=== PATIENT | male | born 1965 | race Hispanic/Latino ===

== ENCOUNTER 2018-10-04 19:44 | Inpatient (IN) | payer OTHER, SELFPAY ==
[2018-10-04 20:20] LABS: #Basophils 0.1 thou/uL (0.0-0.2); #Eosinphils 0.2 thou/uL (0.0-0.7); #Lymphocytes 5.2 thou/uL (1.20-3.40); #Monocytes 0.7 thou/uL (0.11-0.59); #Neutrophils 4.3 thou/uL (1.40-6.50); %Basophils 1.1 % (0.0-1.0); %Eosinophils 2.2 % (0.0-10.0); %Lymphocytes 49.3 % (21.0-51.0); %Monocytes 6.6 % (0.0-10.0); %Neutrophils 40.8 % (42.0-75.0); Hemoglobin 16.4 g/dL (14.0-18.0); Mean Corpuscular HGB CONC 33.7 g/dL (32.0-36.0); Mean Corpuscular Hemoglobin 31.3 pg (27.0-31.0); Mean Corpuscular Volume 92.8 fL (78.0-98.0); Mean Platelet Volume 9.6 fL (7.4-10.4); Platelet Count 231 thou/uL (130-400); RBC Distribution Width 12.2 % (11.5-14.5); Red Blood Cell (RBC) Count 5.24 mill/uL (4.70-6.10); White Blood Cell (WBC) Count 10.5 thou/uL (4.8-10.8)
[2018-10-04] MEDS ORDERED: Promethazine HCl 25 MG/ML VIAL ONE (20:26)
[2018-10-04 20:27] LABS: ALT (SGPT) 66 U/L (8-55); AST (SGOT) 25 U/L (5-34); Albumin 4.8 g/dL (3.5-5.0); Alkaline Phosphatase 93 U/L (40-150); Anion Gap 19 mmol/L (10-20); BUN (Urea Nitrogen) 14 mg/dL (8.4-25.7); Bilirubin, Total 0.4 mg/dL (0.2-1.2); Calc. Creatinine Clearance 0 mL/min (70-130); Calcium 10.6 mg/dL (7.8-10.44); Carbon Dioxide 22 mmol/L (22-29); Chloride 103 mmol/L (98-107); Estimated GFR-MDRD 61; Globulin 4.4 g/dL (2.4-3.5); Glucose 432 mg/dL (70-105); Potassium 3.9 mmol/L (3.5-5.1); Protein, Total 9.2 g/dL (6.0-8.3); Sodium 140 mmol/L (136-145)
--- NOTE | 2018-10-04 20:43 | RAD ---
PORTABLE CHEST: Indications: Cough. Comparison: 07-12-14 FINDINGS: Slightly elevated left hemidiaphragm with gaseous distention of the stomach seen under the left hemid iaphragm. The lungs appear clear with no evidence of infiltrate or effusion. Vascular markings within normal range. IMPRESSION: No acute findings. POS: [facility]
--- NOTE | 2018-10-04 21:33 | RAD ---
SOFT TISSUES NECK TWO VIEWS: History: Difficulty swallowing. FINDINGS: On the lateral view the hypopharynx shows prominence with air density. No soft tissue mass. The epigl ottis appears unremarkable. No prevertebral soft tissue fullness. IMPRESSION: No acute finding. Degenerative changes in the cervical spine noted. POS: [facility]
--- NOTE | 2018-10-04 23:09 | CT ---
CT NECK WITHOUT CONTRAST: Technique: Multiple axial tomograms were obtained through the neck without IV enhancement. Indications: Coughing and gapping. Dyspnea. FINDINGS: Parotid glands and submandibular glands appear unremarkable. The exam is limited due to lack of IV contrast. The nasopharynx, oropharynx and hypopharynx appear unremarkable. No evidence of soft tissue mass. No evidence of adenopathy. The parapharyngeal space and retropharyngeal space unremarkable. There are bi lateral retropharyngeal carotid arteries which are tortuous. Degenerative changes in the cervical spi ne. IMPRESSION: No evidence of soft tissue mass or adenopathy identified. POS: [facility]
[2018-10-05 01:02] LABS: Lactic Acid 2.5 mmol/L (0.5-2.2)
[2018-10-05] MEDS ORDERED: Dextrose 5% in Water 1,000 ML IV PRN (01:42)
[2018-10-05] MEDS ORDERED: HumaLOG 300 UNITS/3 ML VIAL SC PRN (01:42)
[2018-10-05] MEDS ORDERED: Dextrose 50% Abboject 50 ML SYRINGE SLOW IVP PRN (01:42)
[2018-10-05] MEDS ORDERED: Acetaminophen 650 MG Suppository PR PRN (01:44)
[2018-10-05] MEDS ORDERED: Bisacodyl 10 MG SUPP PR PRN (01:44)
[2018-10-05] MEDS ORDERED: hydrALAZINE 20 MG/ML VIAL SLOW IVP PRN (01:44)
[2018-10-05] MEDS ORDERED: Ondansetron PF 4 MG/2 ML Vial IVP PRN (01:44)
[2018-10-05] MEDS ORDERED: Acetaminophen 325 MG TAB PO PRN (01:44)
[2018-10-05] MEDS ORDERED: Sodium Chloride 0.9% 1,000 ML IV SCH (01:45)
[2018-10-05 02:18] VITALS: BMI 28.7
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
[2018-10-05 06:04] LABS: #Monocytes 0.6 thou/uL (0.11-0.59); #Neutrophils 8.4 thou/uL (1.40-6.50); %Basophils 0.4 % (0.0-1.0); %Eosinophils 0.2 % (0.0-10.0); %Lymphocytes 17.8 % (21.0-51.0); %Monocytes 5.5 % (0.0-10.0); %Neutrophils 76.2 % (42.0-75.0); Hemoglobin 13.9 g/dL (14.0-18.0); Mean Corpuscular HGB CONC 32.5 g/dL (32.0-36.0); Mean Corpuscular Volume 92.2 fL (78.0-98.0); Mean Platelet Volume 9.2 fL (7.4-10.4); Platelet Count 187 thou/uL (130-400); Red Blood Cell (RBC) Count 4.64 mill/uL (4.70-6.10)
[2018-10-05 06:23] LABS: Anion Gap 16 mmol/L (10-20); BUN (Urea Nitrogen) 12 mg/dL (8.4-25.7); Calc. Creatinine Clearance 115 mL/min (70-130); Calcium 9.6 mg/dL (7.8-10.44); Carbon Dioxide 23 mmol/L (22-29); Chloride 107 mmol/L (98-107); Estimated GFR-MDRD Greater than 90; Glucose 310 mg/dL (70-105); Potassium 3.9 mmol/L (3.5-5.1); Sodium 142 mmol/L (136-145)
[2018-10-05] MEDS: Heparin 5,000 UNITS/ML VIAL SC SCH ×2 (08:23→15:20)
[2018-10-05 08:58] LABS: Bilirubin Negative (Negative); Blood, Urine Negative (Negative); Clarity CLEAR (Clear); Glucose, Urine (Dipstick) >=1000 mg/dL (Negative); Leukocyte Negative (Negative); Nitrite Negative (Negative); Protein, Urine (Dipstick) Negative (Neg-Trace); Specific Gravity, Urine 1.039 (1.002-1.036); Urobilinogen 0.2 mg/dL (0.2-1.0)
[2018-10-05 09:01] LABS: Bacteria/HPF None Seen HPF (None Seen); Hyaline Casts/LPF 0-3 HYALINE CAST LPF (0-3 Hyaline); RBC/HPF 0-3 HPF (0-3); Squamous Epithelial None Seen HPF (0-3); WBC/HPF 0-3 HPF (0-3)
--- NOTE | 2018-10-05 12:51 | MRI ---
MRI BRAIN: HISTORY: A 53-year-old with a history of a stroke. Altered mental status. COMPARISON: CT brain from 08/01/2014. TECHNIQUE: Multiplanar, multisequence, noncontrast-enhanced MR images of the brain obtained. FINDINGS: The previously noted bilateral chronic subdural hematomas have resolved. Some cortical atrophy is pr esent. There is abnormal increased T2 signal seen in the right and left brachium pontis, symmetrically. The se may represent areas of gliosis. There are also some areas of decreased signal on the gradient ech o sequences in these same areas, possibly representing small areas of hemorrhage, which have undergon e chronic changes. There is also pontine and medullary atrophy present. IMPRESSION: 1. Chronic brachium pontis changes with atrophy, as described above. 2. No evidence of acute strokes or abnormalities seen. POS: [facility]
--- NOTE | 2018-10-05 13:22 | CT ---
CT CHEST NONCONTRAST: HISTORY: Pneumonia. FINDINGS: At the left posterior lung base, a small areas of parenchymal opacity is present with air bronchogram s. Peripheral linear stranding lies distal to this. Similar linear scarring is present at the right posterior lung base. No lobar consolidation, pneumothorax, or pleural fluid is apparent. Lack of contrast limits evaluati on of the soft tissues. No bulky mediastinal adenopathy. Old left rib fractures. Within the partia lly visualized upper abdomen, the adrenal glands have a normal appearance. The liver is diffusely hy podense. IMPRESSION: 1. Very mild left infrahilar infiltrate without lobar consolidation. Bibasilar linear scarring. Ac tive inflammatory process is not favored. 2. Hepatosteatosis. POS: [facility]
[2018-10-05] MEDS ORDERED: Albuterol Sulfate 2.5 mg/3 ml Neb NEB PRN (13:41)
[2018-10-05] MEDS ORDERED: HYDROcodone/Acetaminophen 10/325 mg Tablet PO PRN (13:41)
[2018-10-05] MEDS ORDERED: traZODone HCl 50 MG TAB PO PRN (13:41)
[2018-10-05] MEDS ORDERED: Milk Of Magnesia 30 ML UDCUP PO PRN (13:41)
--- NOTE | 2018-10-05 13:57 | PDOC.PN ---
- Subjective Encounter Start Date: 10/05/18 Encounter Start Time: 13:54 Mr. Phillips was seen today in follow-up of " chocking episode ". He seems to be at his baseline. He is rolling himself around in a wheelchair. He appears comfortable. He is trying to speck, but his speech is difficult to understand. He does not appear to be in any distress. - Objective Resuscitation Status - Order Detail: 10/05/18 01:42 Resuscitation Status Routine Resuscitation Status: FULL: Full Resuscitation MAR Reviewed: Yes Vital Signs & Weight: Vital Signs (12 hours) Temp Pulse Resp BP Pulse Ox 10/05/18 11:19 98.7 F 90 20 162/109 H 94 L 10/05/18 08:00 97 10/05/18 07:17 98.4 F 92 20 135/84 97 10/05/18 04:00 97.9 F 99 20 118/79 100 Weight Weight 162 lb 4.163 oz I&O: 10/04/18 10/05/18 10/06/18 06:59 06:59 06:59 Intake Total 650 0 Balance 650 0 Result Diagrams: 10/05/18 05:42 10/05/18 05:42 Additional Labs: Accuchecks 10/05/18 10/05/18 06:40 02:33 POC Glucose 283 H 335 H Phys Exam - Physical Examination HEENT: PERRLA Respiratory: no wheezing, no rales, no rhonchi, clear to auscultation bilateral Cardiovascular: RRR, no significant murmur, no rub Gastrointestinal: soft, non-tender, positive bowel sounds Musculoskeletal: no edema Dx/Plan (1) Aspiration pneumonia Code(s): J69.0 - PNEUMONITIS DUE TO INHALATION OF FOOD AND VOMIT Status: Acute (2) Hypertension Code(s): I10 - ESSENTIAL (PRIMARY) HYPERTENSION Status: Chronic (3) Paraplegia Code(s): G82.20 - PARAPLEGIA, UNSPECIFIED Status: Chronic (4) Traumatic brain injury Code(s): S06.9X9A - UNSP INTRACRANIAL INJURY W LOC OF UNSP DURATION, INIT Status: Chronic - Plan * Aspiration pneumonia- this is mild- it was seen only on CT scan, and he is afebrile, and essentially asymptomatic now * He has been evaluated by Speech Therapy, and their recommendations are noted * HTN- blood pressure is stable * DM- blood glucose is a bit elevated- but stable overall * He can be discharged back to the Nursing facility on Augmentin.
[2018-10-05] MEDS ORDERED: Methyl Salicylate/Menthol 85 GM TUBE TOP PRN (14:18)
[2018-10-05] MEDS ORDERED: Preparation H Ointment 28 GM TUBE TOP PRN (14:21)
[2018-10-05] MEDS ORDERED: Gabapentin 300 MG CAP PO SCH (15:00)
[2018-10-05 15:50] VITALS: BP 135/96; TEMP 97.5
[2018-10-05] MEDS ORDERED: metFORMIN 500 MG TAB PO SCH (17:00)
[2018-10-05] MEDS ORDERED: Docusate 100 MG CAP PO SCH (21:00)
[2018-10-05] MEDS ORDERED: Atorvastatin Calcium 10 MG TAB PO SCH (21:00)
[2018-10-05] MEDS ORDERED: Amoxicillin/Potassium Clav 875 MG TAB PO SCH (21:00)
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
[2018-10-06] MEDS ORDERED: Levothyroxine Sodium 100 MCG TAB PO SCH (06:00)
[2018-10-06] MEDS ORDERED: Aspirin 325 mg Enteric Coated Tablet PO SCH (09:00)
[2018-10-06] MEDS ORDERED: Fluticasone Propionate Nasal Spray 16 gm Bottle NASAL SCH (09:00)
[2018-10-06] MEDS ORDERED: Finasteride 5 MG TAB PO SCH (09:00)
[2018-10-06] MEDS ORDERED: Calcium Citrate 950 MG TAB PO SCH (09:00)
[2018-10-06] MEDS ORDERED: Tamsulosin HCl 0.4 MG CAP PO SCH (09:00)
[2018-10-06] MEDS ORDERED: FLUoxetine HCl 20 MG CAP PO SCH (09:00)
[2018-10-06] MEDS ORDERED: Senokot 8.6 MG TAB PO SCH (09:00)
== END 2018-10-05 17:39 | DRG 178 ==
LOC: ERS 19:44 → ERHOLD 23:07 → SURG B 10-05 00:19
PROVIDERS: ADMIT Family Medicine; ATTEND Family Medicine
DX: J69.0 Pneumonitis due to inhalation of food and vomit (principal); E87.2 Acidosis; G82.22 Paraplegia, incomplete; I10 Essential (primary) hypertension; E03.9 Hypothyroidism, unspecified; F32.9 Major depressive disorder, single episode, unspecified; K21.9 Gastro-esophageal reflux disease without esophagitis; E11.65 Type 2 diabetes mellitus with hyperglycemia; S06.9X0S Unspecified intracranial injury without loss of consciousness, sequela; Z79.84 Long term (current) use of oral hypoglycemic drugs; Z79.899 Other long term (current) drug therapy
CPT/HCPCS: 36415; 36416; 70360; 70490; 70551; 71045; 71250; 80048; 80053; 81001; 83605; 85025; 87040; 87804; 96365; 96367; 96375; J1644; J1956; J2550; J3370

== ENCOUNTER 2019-01-04 18:15 | Emergency (ER) | payer SELFPAY ==
[2019-01-04 19:33] LABS: #Basophils 0.1 thou/uL (0.0-0.2); #Eosinphils 0.1 thou/uL (0.0-0.7); #Lymphocytes 2.6 thou/uL (1.20-3.40); #Monocytes 0.5 thou/uL (0.11-0.59); %Basophils 1.8 % (0.0-1.0); %Eosinophils 2.1 % (0.0-10.0); %Lymphocytes 41.2 % (21.0-51.0); %Monocytes 7.2 % (0.0-10.0); %Neutrophils 47.7 % (42.0-75.0); Hemoglobin 14.8 g/dL (14.0-18.0); Mean Corpuscular Hemoglobin 30.8 pg (27.0-31.0); Mean Corpuscular Volume 90.5 fL (78.0-98.0); Mean Platelet Volume 8.4 fL (7.4-10.4); Platelet Count 190 thou/uL (130-400); RBC Distribution Width 11.9 % (11.5-14.5); Red Blood Cell (RBC) Count 4.79 mill/uL (4.70-6.10); White Blood Cell (WBC) Count 6.4 thou/uL (4.8-10.8)
--- NOTE | 2019-01-04 19:49 | CT ---
CT HEAD WITHOUT CONTRAST: Date: 01/04/19 INDICATION: Assess mental status. COMPARISON: 07/11/14. FINDINGS: Mild cortical volume loss. Ventricles have normal size and position. There is no intracranial mass or hemorrhage. No evidence of acute infarct. IMPRESSION: No acute findings. POS: [facility]
[2019-01-04 19:53] LABS: ALT (SGPT) 53 U/L (8-55); AST (SGOT) 24 U/L (5-34); Albumin 4.3 g/dL (3.5-5.0); Alkaline Phosphatase 83 U/L (40-150); Anion Gap 16 mmol/L (10-20); BUN (Urea Nitrogen) 14 mg/dL (8.4-25.7); Bilirubin, Total 0.5 mg/dL (0.2-1.2); Calc. Creatinine Clearance 0 mL/min (70-130); Calcium 9.7 mg/dL (7.8-10.44); Carbon Dioxide 21 mmol/L (22-29); Chloride 102 mmol/L (98-107); Estimated GFR-MDRD Greater than 90; Globulin 3.4 g/dL (2.4-3.5); Glucose 279 mg/dL (70-105); Potassium 3.7 mmol/L (3.5-5.1); Protein, Total 7.7 g/dL (6.0-8.3); Sodium 135 mmol/L (136-145)
== END 2019-01-04 21:19 ==
LOC: ERS 18:15
DX: E11.65 Type 2 diabetes mellitus with hyperglycemia (principal); Z79.84 Long term (current) use of oral hypoglycemic drugs
CPT/HCPCS: 36415; 36416; 70450; 80053; 85025

== ENCOUNTER 2023-05-14 11:00 | Inpatient (IN) | payer SELFPAY ==
[2023-05-14 11:40] LABS: #Monocytes 0.3 thou/uL (0.11-0.59); #Neutrophils 4.8 thou/uL (1.40-6.50); %Basophils 0.4 % (0.0-1.0); %Eosinophils 0.1 % (0.0-10.0); %Lymphocytes 20.3 % (21.0-51.0); %Monocytes 4.2 % (0.0-10.0); %Neutrophils 70.8 % (42.0-75.0); Hematocrit 35.2 % (42.0-52.0); Hemoglobin 11.2 g/dL (14.0-18.0); Mean Corpuscular HGB CONC 31.8 g/dL (32.0-36.0); Mean Corpuscular Hemoglobin 31.1 pg (27.0-31.0); Mean Corpuscular Volume 97.8 fl (78.0-98.0); Mean Platelet Volume 10.7 fL (7.4-10.4); Platelet Count 129 10x3/uL (130-400); RBC Distribution Width 14.8 % (11.5-14.5); White Blood Cell (WBC) Count 6.7 10x3/uL (4.8-10.8)
[2023-05-14 12:01] LABS: ALT (SGPT) 25 U/L (8-55); AST (SGOT) 11 U/L (5-34); Albumin 3.5 g/dL (3.5-5.0); Alkaline Phosphatase 50 U/L (40-110); Anion Gap 21 mmol/L (10-20); BUN (Urea Nitrogen) 49 mg/dL (8.4-25.7); Bilirubin, Total Less than 0.2 mg/dL (0.2-1.2); CK (CPK) 38 U/L (30-200); Calc. Creatinine Clearance 0 mL/min (70-130); Calcium 9.3 mg/dL (7.8-10.44); Carbon Dioxide 21 mmol/L (22-29); Chloride 106 mmol/L (98-107); Estimated GFR 86; Globulin 2.4 g/dL (2.4-3.5); Glucose 143 mg/dL (70-105); Potassium 5.7 mmol/L (3.5-5.1); Protein, Total 5.9 g/dL (6.0-8.3); Sodium 142 mmol/L (136-145)
[2023-05-14 12:12] LABS: Troponin I Less than 0.010 ng/mL (< 0.028)
[2023-05-14 12:13] LABS: CellaVision Operator ID LAB.KB; Ovalocytes SLIGHT = 2-5 cells HPF (0-1); Platelet Adequacy Comment Platelets Decreased; Polychromasia SLIGHT = 2-3 cells HPF (0-2)
[2023-05-14] MEDS ORDERED: Aspirin 300 MG Suppository ONE (12:15)
[2023-05-14] MEDS ORDERED: HYDROcodone/Acetaminophen 5/325 mg Tablet PO PRN ×2 (13:20)
[2023-05-14] MEDS ORDERED: Acetaminophen 325 MG TAB PO PRN (13:20)
[2023-05-14] MEDS ORDERED: HYDROcodone/Acetaminophen 7.5/325 mg Tablet PO PRN ×2 (13:20)
[2023-05-14] MEDS ORDERED: Senokot S 8.6-50 MG TAB PO PRN (13:20)
[2023-05-14] MEDS ORDERED: HYDROcodone/Acetaminophen 10/325 mg Tablet PO PRN (13:24)
[2023-05-14] MEDS ORDERED: traZODone HCl 50 MG TAB PO PRN (13:24)
[2023-05-14] MEDS ORDERED: Iopamidol-370 76% 500 ML MDV (1 ML CHARGE) ONE (13:26)
[2023-05-14] MEDS ORDERED: Dextrose 5% in Water 1,000 ML IV PRN (13:40)
[2023-05-14] MEDS ORDERED: Dextrose 50% Abboject 50 ML SYRINGE SLOW IVP PRN (13:40)
[2023-05-14] MEDS ORDERED: Glucagon 1 MG/ML KIT IM PRN (13:40)
[2023-05-14 13:54] LABS: Prothrombin Time 12.9 sec (12.0-14.7)
[2023-05-14 13:55] LABS: INR-International Normal Ratio 0.9
[2023-05-14] MEDS ORDERED: Lorazepam 2 MG/ML VIAL SLOW IVP PRN (14:17)
[2023-05-14] MEDS ORDERED: Atorvastatin Calcium 10 MG TAB PO SCH (21:00)
[2023-05-15 01:48] VITALS: BMI 23.3
[2023-05-15] MEDS: Gabapentin 300 MG CAP PO SCH ×4 (03:57→20:56)
[2023-05-15] MEDS: Docusate 100 MG CAP PO SCH ×3 (03:58→20:56)
[2023-05-15 04:18] LABS: #Monocytes 0.4 thou/uL (0.11-0.59); %Basophils 0.1 % (0.0-1.0); %Eosinophils 0.4 % (0.0-10.0); %Lymphocytes 33.2 % (21.0-51.0); %Monocytes 6.2 % (0.0-10.0); %Neutrophils 56.6 % (42.0-75.0); Hematocrit 34.9 % (42.0-52.0); Hemoglobin 11.4 g/dL (14.0-18.0); Mean Corpuscular HGB CONC 32.7 g/dL (32.0-36.0); Mean Corpuscular Hemoglobin 31.3 pg (27.0-31.0); Mean Corpuscular Volume 95.9 fl (78.0-98.0); Mean Platelet Volume 9.4 fL (7.4-10.4); Platelet Count 168 10x3/uL (130-400); RBC Distribution Width 14.6 % (11.5-14.5); Red Blood Cell (RBC) Count 3.64 mill/uL (4.70-6.10); White Blood Cell (WBC) Count 7.1 10x3/uL (4.8-10.8)
[2023-05-15 04:42] LABS: Anion Gap 14 mmol/L (10-20); BUN (Urea Nitrogen) 35 mg/dL (8.4-25.7); Calc. Creatinine Clearance 85 mL/min (70-130); Calcium 9.7 mg/dL (7.8-10.44); Carbon Dioxide 29 mmol/L (22-29); Cardiac Risk 3.6 (Less than 4.5); Chloride 104 mmol/L (98-107); Cholesterol 140 mg/dl (< 200 Desired); Estimated GFR 107; Glucose 95 mg/dL (70-105); HDL Cholesterol 39 mg/dL (>60 Neg Risk); LDL Cholesterol, Calculated 56 mg/dL; Potassium 4.5 mmol/L (3.5-5.1); Sodium 142 mmol/L (136-145); Triglycerides 224 mg/dL (Less than 150)
[2023-05-15] MEDS: Aspirin 325 mg Enteric Coated Tablet PO SCH (10:36)
[2023-05-15] MEDS: Levothyroxine Sodium 100 MCG TAB PO SCH (10:37)
[2023-05-15] MEDS: Loratadine 10 MG TAB PO SCH (10:37)
[2023-05-15] MEDS: Tamsulosin HCl 0.4 MG CAP PO SCH (10:37)
[2023-05-15] MEDS: FLUoxetine HCl 20 MG CAP PO SCH (10:37)
[2023-05-15] MEDS ORDERED: Lorazepam 2 MG/ML VIAL SLOW IVP PRN (11:34)
[2023-05-15] MEDS ORDERED: FLU VACC QS2023-24(6MOS UP)/PF 60 MCG/0.5 ML SYRINGE IM ONE (12:00)
[2023-05-15] MEDS: Senokot 8.6 MG TAB PO SCH (16:33)
[2023-05-15] MEDS: HumaLOG 300 UNITS/3 ML VIAL SC PRN ×2 (18:45→22:11)
[2023-05-15] MEDS: Atorvastatin Calcium 40 MG TAB PO SCH (20:56)
[2023-05-16] MEDS: Levothyroxine Sodium 100 MCG TAB PO SCH (05:50)
[2023-05-16] MEDS ORDERED: Non-Formulary Item 1 EACH (Omeprazole Magnesium [Prilosec Otc] 20 MG Tab) PO SCH (09:00)
[2023-05-16] MEDS ORDERED: Levothyroxine Sodium 50 MCG TAB PO SCH (09:00)
[2023-05-16] MEDS: Docusate 100 MG CAP PO SCH ×2 (09:01→20:27)
[2023-05-16] MEDS: Tamsulosin HCl 0.4 MG CAP PO SCH (09:01)
[2023-05-16] MEDS: Aspirin 325 mg Enteric Coated Tablet PO SCH (09:01)
[2023-05-16] MEDS: Loratadine 10 MG TAB PO SCH (09:02)
[2023-05-16] MEDS: Gabapentin 300 MG CAP PO SCH ×3 (09:02→20:27)
[2023-05-16] MEDS: Senokot 8.6 MG TAB PO SCH (09:02)
[2023-05-16] MEDS: FLUoxetine HCl 20 MG CAP PO SCH (09:03)
[2023-05-16] MEDS: Dexamethasone 4 MG TAB PO SCH ×2 (09:07→20:26)
[2023-05-16] MEDS: Divalproex Sodium 125 mg Sprinkle Capsule PO SCH ×2 (10:39→20:27)
[2023-05-16] MEDS: HumaLOG 300 UNITS/3 ML VIAL SC PRN ×2 (13:26→18:16)
[2023-05-16] MEDS: PARoxetine 20 MG TAB PO SCH (20:26)
[2023-05-16] MEDS: Atorvastatin Calcium 40 MG TAB PO SCH (20:27)
[2023-05-17] MEDS: Levothyroxine Sodium 100 MCG TAB PO SCH (06:11)
[2023-05-17] MEDS: HumaLOG 300 UNITS/3 ML VIAL SC PRN ×2 (06:11→17:16)
[2023-05-17] MEDS: FLUoxetine HCl 20 MG CAP PO SCH (09:26)
[2023-05-17] MEDS: Divalproex Sodium 125 mg Sprinkle Capsule PO SCH ×2 (09:26→22:15)
[2023-05-17] MEDS: Senokot 8.6 MG TAB PO SCH (09:28)
[2023-05-17] MEDS: Dexamethasone 4 MG TAB PO SCH ×2 (09:28→22:15)
[2023-05-17] MEDS: Aspirin 325 mg Enteric Coated Tablet PO SCH (09:29)
[2023-05-17] MEDS: Docusate 100 MG CAP PO SCH ×2 (09:29→22:09)
[2023-05-17] MEDS: Loratadine 10 MG TAB PO SCH (09:29)
[2023-05-17] MEDS: Tamsulosin HCl 0.4 MG CAP PO SCH (09:29)
[2023-05-17] MEDS: Gabapentin 300 MG CAP PO SCH ×3 (11:40→22:16)
[2023-05-17] MEDS: Atorvastatin Calcium 40 MG TAB PO SCH (22:08)
[2023-05-17] MEDS: PARoxetine 20 MG TAB PO SCH (22:16)
[2023-05-18] MEDS: Levothyroxine Sodium 100 MCG TAB PO SCH (05:36)
[2023-05-18] MEDS: Divalproex Sodium 125 mg Sprinkle Capsule PO SCH (09:39)
[2023-05-18] MEDS: Gabapentin 300 MG CAP PO SCH ×2 (09:39→15:12)
[2023-05-18] MEDS: Aspirin 325 mg Enteric Coated Tablet PO SCH (09:40)
[2023-05-18] MEDS: Docusate 100 MG CAP PO SCH (09:40)
[2023-05-18] MEDS: FLUoxetine HCl 20 MG CAP PO SCH (09:46)
[2023-05-18] MEDS: Tamsulosin HCl 0.4 MG CAP PO SCH (09:46)
[2023-05-18] MEDS: Loratadine 10 MG TAB PO SCH (09:46)
[2023-05-18] MEDS: Senokot 8.6 MG TAB PO SCH (09:46)
[2023-05-18] MEDS: Dexamethasone 4 MG TAB PO SCH (09:46)
[2023-05-18 11:57] VITALS: TEMP 97.1
[2023-05-18 15:58] VITALS: BP 141/88
== END 2023-05-18 19:10 | DRG 69 ==
LOC: ERS 11:00 → SUATTDRO 11:00 → ERHOLD 13:20 → 2SE 21:37 → OBSVTOIN 05-15 16:33
PROVIDERS: ADMIT Family Medicine; ATTEND Internal Medicine
DX: G45.9 Transient cerebral ischemic attack, unspecified (principal); G82.50 Quadriplegia, unspecified; I10 Essential (primary) hypertension; E11.9 Type 2 diabetes mellitus without complications; R13.10 Dysphagia, unspecified; N31.9 Neuromuscular dysfunction of bladder, unspecified; K59.00 Constipation, unspecified; F32.A Depression, unspecified; G89.4 Chronic pain syndrome; Z79.82 Long term (current) use of aspirin; Z79.2 Long term (current) use of antibiotics; Z79.890 Hormone replacement therapy; Z79.899 Other long term (current) drug therapy; Z87.820 Personal history of traumatic brain injury; R29.810 Facial weakness; R29.703 NIHSS score 3; N40.0 Benign prostatic hyperplasia without lower urinary tract symptoms; E03.9 Hypothyroidism, unspecified; Z79.84 Long term (current) use of oral hypoglycemic drugs; K21.9 Gastro-esophageal reflux disease without esophagitis
CPT/HCPCS: 0042T; 36415; 36416; 70450; 70496; 70498; 74230; 80048; 80053; 80061; 82550; 84484; 85025; 85610; 85730; 90471; 90686; 93005; 93306; 96372; 96374; G0008; G0378; J1650; J1815; J2060; J8540; Q9967